=== PATIENT | male | born 1970 | race Caucasian/White ===

== ENCOUNTER → 2022-11-05 | Outpatient (CLI) | payer BC ==
--- NOTE | 2022-11-05 09:35 | US ---
EXAMINATION TYPE: US abdomen complete DATE OF EXAM: 11/05/2022 COMPARISON: NONE CLINICAL INDICATION: Male, 52 years old with history of R10.9 ABD pain; Upper abdomen pain TECHNIQUE: Multiple sonographic images of the abdomen are obtained. FINDINGS: EXAM MEASUREMENTS: Liver Length: 17.9 cm Gallbladder Wall: 0.2 cm CBD: 0.4 cm Spleen: 9.3 cm Right Kidney: 9.7 x 5.7 x 5.8 cm Left Kidney: 12.0 x 5.9 x 6.8 cm Pancreas: obscured by overlying midline bowel gas Liver: measures in upper limits of normal, increased attenuation, decreased visualization of vessels suggestive of fatty infiltrate Gallbladder: wnl Evidence for sonographic Oleary's sign: no CBD: visualized portions wnl, limited by overlying bowel gas Spleen: visualized portions wnl, limited by overlying bowel gas Right Kidney: wnl Left Kidney: wnl Upper IVC: wnl Abd Aorta: obscured by overlying midline bowel gas The liver is demonstrates diffuse increased attenuation and measures in upper limits of normal for si ze. No focal lesion identified. The intrahepatic portion of the IVC is within normal limits. The abdo laya aorta is obscured by overlying bowel gas. There is no evidence of cholelithiasis. Common bile duct is unremarkable. The pancreas is obscured by overlying bowel gas. The spleen is unremarkable. Kidneys are symmetric and free of hydronephrosis. No renal lesions are seen. IMPRESSION: Limited examination due to overlying bowel gas. 1. No visualize acute process. 2. Hepatic steatosis.
== END | disposition home or self-care (01) ==
LOC: RADUSWWP 10:13
PROVIDERS: ATTEND Family Medicine
DX: K76.0 Fatty (change of) liver, not elsewhere classified (principal)
CPT/HCPCS: 76700